=== PATIENT | male | born 1985 | race Caucasian/White ===

== ENCOUNTER 2025-07-01 11:12 | Outpatient (REF) | payer OTHER, MEDICAID, SELFPAY ==
[2025-07-01 15:23] LABS: HCT 43.1 % (40.0-50.0); HGB 14.6 g/dL (13.5-17.5); MCH 30.2 pg (27.0-33.0); MCHC 33.9 % (32.0-36.0); MCV 89 fL (80-95); MPV 10.6 fL (8.0-11.0); Platelet Count 233 10^3/uL (130-400); RBC 4.84 10^6/uL (4.36-5.78); RDW 12.0 % (11.8-14.1); RDW-SD 38.9 fL; WBC 4.70 10^3/uL (4.4-10.8)
[2025-07-01 15:59] LABS: ALT 51 U/L (16-63); AST 24 U/L (15-37); Albumin 4.2 g/dL (3.4-5.0); Alkaline Phosphatase 54 U/L (46-116); Anion Gap 10.2 mmol/L (3-11); BUN 14 mg/dL (7-18); Bilirubin, Total 0.6 mg/dL (0.2-1.0); CO2 28.8 mmol/L (21.0-32.0); Calcium 9.4 mg/dL (8.5-10.1); Calculated LDL 210 mg/dL (<100); Chloride 101 mmol/L (98-107); Cholesterol 295 mg/dL (<200); Estimated GFR 114.74 (mL/min/1.73m2); Glucose 88 mg/dL (74-106); HDL Cholesterol 70 mg/dL (>or=40); Potassium 3.9 mmol/L (3.5-5.1); Sodium 140 mmol/L (136-145); Total Protein 7.7 g/dL (6.4-8.2); Triglyceride 78 mg/dL (<150)
== END 2025-07-01 11:13 | disposition home or self-care (01) ==
LOC: NCHCN 11:12
PROVIDERS: PCP Internal Medicine
DX: Z13.0 Encounter for screening for diseases of the blood and blood-forming organs and certain disorders involving the immune mechanism (principal); Z13.220 Encounter for screening for lipoid disorders; Z13.1 Encounter for screening for diabetes mellitus
CPT/HCPCS: 80053; 80061; 85027